=== PATIENT | female | born 1970 | race Hispanic/Latino ===

== ENCOUNTER 2018-01-23 11:59 | Emergency (ER) | payer OTHER ==
[~2018-01-23] VITALS: Ht 162.6 cm; Wt 104.3 kg
[~2018-01-23 11:59] MED LIST: LEVOTHYROXINE25 MCG PO; LIOTHYRONINE SO5 MCG PO; METFORMIN HCL500 M1 PO; VITAMIN D400 UNIT PO
[2018-01-23] MEDS ORDERED: ATORVASTATIN CA10 MG PO (12:30)
[2018-01-23] MEDS ORDERED: METFORMIN HCL500 MG PO (12:30)
[2018-01-23] MEDS ORDERED: LEVOTHYROXINE25 MCG (12:30)
[2018-01-23] MEDS ORDERED: CEFTRIAXONE SOD 1 GM VIAL IM ONE (12:45)
== END 2018-01-23 13:05 | disposition home or self-care (01) ==
LOC: FSED 11:59 → ER 13:05
DX: R30.0 Dysuria (principal); E11.9 Type 2 diabetes mellitus without complications
CPT/HCPCS: 81003; 81025; 99283